=== PATIENT | female | born 1945 ===

== ENCOUNTER 2020-09-30 23:54 | Emergency (ER) | payer OTHER ==
[~2020-09-30] VITALS: Ht 172.7 cm; Wt 90.9 kg
[2020-10-01] MEDS ORDERED: SODIUM CHLORIDE FLUSH 10ML SYR IVF ONE (00:30)
[2020-10-01] MEDS ORDERED: LISI-170 PO (00:36)
[2020-10-01] MEDS ORDERED: ASPI-963 PO (00:36)
[2020-10-01] MEDS ORDERED: LEVO137T3 PO (00:36)
[2020-10-01] MEDS ORDERED: CHOL10003 PO (00:36)
[2020-10-01] MEDS ORDERED: METO25TA35 PO (00:36)
[2020-10-01] MEDS ORDERED: FURO40TA6 PO (00:36)
[2020-10-01] MEDS ORDERED: ATOR-2 PO (00:36)
[2020-10-01 00:40] LABS: BASOPHILS % (AUTO) 1 % (0-1); EOSINOPHILS % (AUTO) 2 % (1-7); LYMPHOCYTES % (AUTO) 11 % (22-44); MEAN CORPUSCULAR HEMOGLOBIN 29.2 pg (27.0-34.8); MEAN CORPUSCULAR HGB CONC 33.1 g/dL (32.4-35.8); MEAN PLATELET VOLUME 8.7 fL (7.4-10.4); MONOCYTES % (AUTO) 5 % (2-9); NEUTROPHILS % (AUTO) 82 % (42-75); PLATELET COUNT 212 x10^3/uL (130-400); RED CELL DISTRIBUTION WIDTH 14.7 % (9.6-15.2)
[2020-10-01 00:41] LABS: MD NO
[2020-10-01 00:49] LABS: ALANINE AMINOTRANSFERASE 27 U/L (12-78); ALBUMIN 3.4 g/dL (3.4-5.0); ANION GAP 6 mmol/L (5-15); CALCIUM 8.5 mg/dL (8.5-10.1); CHLORIDE 110 mmol/L (98-107); CREATININE 1.13 mg/dL (0.55-1.02)
[2020-10-01 00:54] LABS: ALKALINE PHOSPHATASE 144 U/L (45-117); BILIRUBIN,TOTAL 0.3 mg/dL (0.2-1.0); TOTAL PROTEIN 7.7 g/dL (6.4-8.2); TROPONIN I < 0.015 ng/mL (0.000-0.045)
[2020-10-01] MEDS ORDERED: FUROSEMIDE 40 MG/4 ML IV ONE (01:00)
--- NOTE | 2020-10-01 01:35 | NUR ---
pt to ct
[2020-10-01] MEDS ORDERED: FUROSEMIDE 40 MG/4 ML ONE (01:42)
[2020-10-01] MEDS ORDERED: OMNIPAQUE 350 MG/ML, 75ML BOTTLE ONE (01:47)
[2020-10-01 02:54] VITALS: BP 172/81
== END 2020-10-01 03:34 | disposition home or self-care (01) ==
LOC: ED 10-01 03:15
DX: I50.21 Acute systolic (congestive) heart failure (principal); R06.00 Dyspnea, unspecified; R01.1 Cardiac murmur, unspecified; I25.2 Old myocardial infarction; I25.10 Atherosclerotic heart disease of native coronary artery without angina pectoris
CPT/HCPCS: 36415; 71045; 71275; 80053; 83880; 84484; 85025; 85379; 93005; 96374; 99285; J1940; Q9967